=== PATIENT | female | born 1965 | race Hispanic/Latino ===

== ENCOUNTER 2018-04-23 15:25 | Inpatient (IN) | payer SELFPAY ==
[~2018-04-23] VITALS: Ht 165.1 cm; Wt 93.1 kg
[2018-04-23] MEDS ORDERED: IBUPROFEN 600 MG TABLET ONE (16:03)
[2018-04-23 16:10] LABS: BASOPHILS % (AUTO) 0.4 % (0.0-5.0); HEMATOCRIT 37.7 % (36-48); LYMPHOCYTES % (AUTO) 5.6 % (21.0-51.0); MEAN CORPUSCULAR HEMOGLOBIN 27.1 pg (27.0-33.0); MEAN CORPUSCULAR HGB CONC 33.4 g/dL (32.0-36.0); MONOCYTES % (AUTO) 1.5 % (3.0-13.0); NEUTROPHILS % (AUTO) 92.5 % (40.0-77.0); PLATELET COUNT (AUTO) 237 K/uL (130-400); RED BLOOD CELL COUNT(AUTO) 4.65 MIL/uL (4.00-5.50); RED CELL DISTRIBUTION WIDTH 14.5 % (11.0-15.5); WHITE BLOOD COUNT (AUTO) 13.4 K/uL (4.8-10.8)
[2018-04-23 16:14] LABS: CARBON DIOXIDE 26 mmol/L (21-32); CHLORIDE 98 mmol/L (101-111); GLOMERULAR FILTR. RATE CALC 62 mL/min (>60); GLUCOSE,RANDOM 302 mg/dL (70-105); POTASSIUM 3.7 mmol/L (3.5-5.1); SODIUM SERUM 135 mmol/L (136-145); UREA NITROGEN, BLOOD 13 mg/dL (7-18)
[2018-04-23 16:17] LABS: INR 0.93 (0.85-1.15); PROTHROMBIN TIME 9.8 SEC (9.6-11.6)
[2018-04-23] MEDS ORDERED: CEFTRIAXONE SODIUM 1 GM ONE (16:19)
[2018-04-23 16:26] LABS: APPEARANCE,URINE CLOUDY (CLEAR); BILIRUBIN,URINE NEGATIVE (NEGATIVE); COLOR,URINE YELLOW (YELLOW); GLUCOSE, URINE (UA) >=1000 mg/dL (NEGATIVE); KETONES,URINE 5 mg/dL (NEGATIVE); LEUKOCYTE ESTERASE ,URINE TRACE (NEGATIVE); NITRATE,URINE POSITIVE (NEGATIVE); OCCULT BLOOD,URINE SMALL (NEGATIVE); PROTEIN,URINE 30 (NEGATIVE); UROBILINOGEN,URINE 0.2 mg/dL (0.2-1.0)
[2018-04-23 16:34] LABS: ALANINE AMINOTRANSFERASE 28 U/L (12-78); ALBUMIN 3.5 g/dL (3.5-5.0); ASPARTATE AMINOTRANSFERASE 16 U/L (10-37); BILIRUBIN,TOTAL 0.4 mg/dL (0.2-1.0); CREATINE KINASE, TOTAL 57 U/L (21-232); MYOGLOBIN 73 ng/mL (10-92); TOTAL PROTEIN, SERUM 7.5 g/dL (6.0-8.3); TROPONIN I < 0.04 ng/mL (0.00-0.06)
[2018-04-23 16:38] LABS: B-TYPE NATRIURETIC PEPTIDE 8 pg/mL (0-100)
[2018-04-23 16:58] LABS: RAPID GROUP A STREP NEGATIVE (NEGATIVE)
[2018-04-23 17:15] LABS: BACTERIA,URINE Moderate /HPF (None Seen); WBC,URINE 26-50 /HPF (0-1)
[2018-04-23 17:16] LABS: SQUAMOUS EPITHELIAL CELL,UR Rare /HPF (0-2)
[2018-04-23] MEDS ORDERED: ONDANSETRON HCL 4 MG/2 ML VIAL IV PRN (18:30)
[2018-04-23] MEDS ORDERED: ACETAMINOPHEN 325 MG TAB PO PRN (18:30)
[2018-04-23] MEDS ORDERED: GLUCAGON 1MG KIT 1 MG ML IM PRN (18:30)
[2018-04-23] MEDS ORDERED: DEXTROSE 50%-WATER 50 ML DISP.SYRIN IV PRN (18:30)
[2018-04-23 18:54] LABS: HEMOGLOBIN A1C 11.1 % (4.0-6.0)
[2018-04-23] MEDS ORDERED: MAGNESIUM 2GM PREMIX 50ML 50 ML IV PRN (19:30)
[2018-04-23] MEDS ORDERED: POTASSIUM CHLORIDE 20MEQ/100ML 100 ML IV PRN (19:30)
[2018-04-23] MEDS ORDERED: LIDOCAINE HCL-MPF 1% 2ML VIAL IVP PRN (19:30)
[2018-04-23] MEDS ORDERED: POTASSIUM CHLORIDE 20 MEQ ERTAB PO PRN (19:30)
[2018-04-23] MEDS ORDERED: POTASSIUM CHLORIDE 10% ELIXIR 20 MEQ/15 ML UDCUP PO PRN (19:30)
[2018-04-23] MEDS ORDERED: IOHEXOL-350 75 ML VIAL IV ONE (19:50)
[2018-04-23] MEDS: ZOSYN 3.375GM+NS 50ML 50 ML IV SCH ×2 (20:00→21:00)
[2018-04-23] MEDS ORDERED: ZOSYN 3.375GM+NS 50ML 50 ML IV SCH (21:00)
[2018-04-23] MEDS: FAMOTIDINE 20MG TAB 20 MG TAB PO SCH (21:59)
[2018-04-23] MEDS: SODIUM CHLORIDE 0.9% 1000ML 1,000 ML IV SCH (22:00)
[2018-04-23] MEDS: INSULIN HUMULIN R 100 UNIT/ML 3ML SQ SCH (22:04)
[2018-04-23 22:48] VITALS: BP 129/70
[2018-04-23] MEDS ORDERED: METF-444 PO (23:35)
[2018-04-23] MEDS ORDERED: vitamin b (23:35)
[2018-04-23] MEDS ORDERED: LEVO25TA54 PO (23:35)
[2018-04-24] MEDS: SODIUM CHLORIDE 0.9% 1000ML 1,000 ML IV SCH ×3 (01:49→18:23)
[2018-04-24 03:44] VITALS: BP 118/47
[2018-04-24] MEDS: ZOSYN 3.375GM+NS 50ML 50 ML IV SCH ×3 (04:15→20:18)
[2018-04-24 06:08] LABS: HEMATOCRIT 30.4 % (36-48); MEAN CORPUSCULAR HEMOGLOBIN 27.3 pg (27.0-33.0); MEAN CORPUSCULAR HGB CONC 33.6 g/dL (32.0-36.0); MEAN CORPUSCULAR VOLUME 81.2 fL (79-99); PLATELET COUNT (AUTO) 206 K/uL (130-400); RED BLOOD CELL COUNT(AUTO) 3.75 MIL/uL (4.00-5.50); RED CELL DISTRIBUTION WIDTH 14.2 % (11.0-15.5); WHITE BLOOD COUNT (AUTO) 11.9 K/uL (4.8-10.8)
[2018-04-24 06:34] LABS: ALBUMIN 2.5 g/dL (3.5-5.0); BAND NEUTROPHILS % (MANUAL) 10 % (0-2); BILIRUBIN,TOTAL 0.3 mg/dL (0.2-1.0); CREATININE 0.6 mg/dL (0.5-1.5); LYMPHOCYTES % (MANUAL) 12 % (22-44); MAN.DIFF COMMENT-IMPRESSION MANUAL DIFFERENTIAL; METAMYELOCYTES % 1 % (0-0); MONOCYTES % (MANUAL) 4 % (2-9); PLATELET MORPHOLOGY COMMENT ADEQUATE; POTASSIUM 3.4 mmol/L (3.5-5.1); REACTIVE LYMPHOCYTES 1 % (0-0); SEGMENTED NEUTROPHILS % 72 % (40-70); TOTAL PROTEIN, SERUM 5.8 g/dL (6.0-8.3)
[2018-04-24] MEDS: INSULIN HUMULIN R 100 UNIT/ML 3ML SQ SCH ×4 (06:49→21:40)
[2018-04-24 08:00] VITALS: BP 105/60
[2018-04-24] MEDS: FAMOTIDINE 20MG TAB 20 MG TAB PO SCH ×2 (09:26→20:18)
[2018-04-24] MEDS: ENOXAPARIN SODIUM 40 MG/0.4 ML SYRINGE SQ SCH (09:26)
[2018-04-24 12:00] VITALS: BP 97/54
[2018-04-24 16:00] VITALS: BP 115/68
[2018-04-24] MEDS: ACETAMINOPHEN 325 MG TAB PO PRN (17:46)
[2018-04-24 19:48] VITALS: BP 141/72
--- NOTE | 2018-04-24 21:16 | NUR ---
cm note pt live with family and children, independnet with ambulation and adls . 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 dc plan is back to home. no needs. goes to md at [facility] in [place] for meds and md followup. states no dc needs.
[2018-04-25 00:29] VITALS: BP 113/60
[2018-04-25] MEDS: SODIUM CHLORIDE 0.9% 1000ML 1,000 ML IV SCH ×2 (01:39→10:23)
[2018-04-25] MEDS: ZOSYN 3.375GM+NS 50ML 50 ML IV SCH ×3 (04:18→21:29)
[2018-04-25] MEDS: ACETAMINOPHEN 325 MG TAB PO PRN ×2 (04:18→13:33)
[2018-04-25 04:43] VITALS: BP 142/78
[2018-04-25] MEDS: INSULIN HUMULIN R 100 UNIT/ML 3ML SQ SCH ×4 (06:58→22:57)
[2018-04-25 08:00] VITALS: BP 124/67
[2018-04-25] MEDS: FAMOTIDINE 20MG TAB 20 MG TAB PO SCH ×2 (09:34→21:29)
[2018-04-25] MEDS: ENOXAPARIN SODIUM 40 MG/0.4 ML SYRINGE SQ SCH (09:34)
[2018-04-25 11:00] VITALS: BP 135/77
[2018-04-25] MEDS: LEVOFLOXACIN 500 MG/D5W 100 ML 100 ML IV SCH (14:00)
[2018-04-25 16:00] VITALS: BP 150/82
--- NOTE | 2018-04-25 16:45 | NUR ---
[facility] CM met with pt discussed dc plans. Pt is independent prior to admission, lives at home with children, mother lives close by. Denies any equipments/services. Pt feels safe to go back home, still drives and works, arranges own need. Pt is a self pay, [facility] assisting. Pt states she goes to [facility] for MD vergara/jaylen, pt given community resources. DC plan to home once stable. CM to cont to follow up. Addendum: 04/25/18 at 1647 by AILEEN STEPHENS LVN CM Amended: Links added.
[2018-04-25 21:18] VITALS: BP 143/73
[2018-04-25] MEDS: INSULIN GLARGINE 100 UNITS/ML 10 ML VIAL SQ SCH (22:57)
[2018-04-26 00:11] VITALS: BP 125/75
[2018-04-26 04:15] LABS: HEMATOCRIT 33.2 % (36-48); MEAN CORPUSCULAR HEMOGLOBIN 27.1 pg (27.0-33.0); MEAN CORPUSCULAR HGB CONC 33.6 g/dL (32.0-36.0); MEAN CORPUSCULAR VOLUME 80.6 fL (79-99); PLATELET COUNT (AUTO) 265 K/uL (130-400); RED BLOOD CELL COUNT(AUTO) 4.12 MIL/uL (4.00-5.50); RED CELL DISTRIBUTION WIDTH 14.1 % (11.0-15.5); WHITE BLOOD COUNT (AUTO) 7.4 K/uL (4.8-10.8)
[2018-04-26 04:20] VITALS: BP 124/65
[2018-04-26 04:23] LABS: CREATININE 0.7 mg/dL (0.5-1.5); POTASSIUM 3.6 mmol/L (3.5-5.1)
[2018-04-26] MEDS: ZOSYN 3.375GM+NS 50ML 50 ML IV SCH (05:01)
[2018-04-26] MEDS: INSULIN HUMULIN R 100 UNIT/ML 3ML SQ SCH ×2 (06:12→12:06)
[2018-04-26] MEDS: INSULIN GLARGINE 100 UNITS/ML 10 ML VIAL SQ SCH (06:18)
[2018-04-26] MEDS ORDERED: LEVOTHYROXINE 25 MCG TABLET PO SCH (06:30)
[2018-04-26 08:00] VITALS: BP 136/79
[2018-04-26] MEDS: FAMOTIDINE 20MG TAB 20 MG TAB PO SCH (09:45)
[2018-04-26] MEDS: ENOXAPARIN SODIUM 40 MG/0.4 ML SYRINGE SQ SCH (09:45)
[2018-04-26 11:49] VITALS: BP 125/81
[2018-04-26] MEDS: ACETAMINOPHEN 325 MG TAB PO PRN (12:38)
[2018-04-26] MEDS: LEVOFLOXACIN 500 MG/D5W 100 ML 100 ML IV SCH (13:39)
[2018-04-26] MEDS ORDERED: LEVO500T2 PO (14:42)
--- NOTE | 2018-04-26 17:20 | NUR ---
PATIENT GIVEN DISCHARGES ORDERS AND VERBALIZED UNDERSTANDING , IV REMOVED WITH CATHETER INTACT AND PRESSURE HELD ON SITE THEN SITE DRESSED. MONITOR UNIT NOTIFIED AND TELEMETRY REMOVED , PATIENT TO FOLLOW-UP WITH HER PCP IN 3-5 DAYS, PATIENT INSTRUCTED TO CONTINUE TO TAKE LEVAQUIN FOR DAILY FOR 10 DAYS . NO QUESTIONS OR CONCERNS AT THIS TIME AND PATIENT WAS TAKING VIA WHEELCHAIR TO [facility] AND LEFT FOR HOME WITH FAMILY.
== END 2018-04-26 17:29 | disposition home or self-care (01) | DRG 872 ==
LOC: EDH 15:25 → EDHIP 15:26 → 4CH 21:29
PROVIDERS: ADMIT Hospitalist; ATTEND Hospitalist
DX: A41.9 Sepsis, unspecified organism (principal); N39.0 Urinary tract infection, site not specified; R65.20 Severe sepsis without septic shock; E11.65 Type 2 diabetes mellitus with hyperglycemia; E83.42 Hypomagnesemia; E87.6 Hypokalemia; E03.9 Hypothyroidism, unspecified; B96.20 Unspecified Escherichia coli [E. coli] as the cause of diseases classified elsewhere; E66.9 Obesity, unspecified; Z80.1 Family history of malignant neoplasm of trachea, bronchus and lung; Z80.3 Family history of malignant neoplasm of breast; Z90.721 Acquired absence of ovaries, unilateral; Z82.49 Family history of ischemic heart disease and other diseases of the circulatory system; Z90.49 Acquired absence of other specified parts of digestive tract; Z79.84 Long term (current) use of oral hypoglycemic drugs; Z79.899 Other long term (current) drug therapy; Z68.34 Body mass index [BMI] 34.0-34.9, adult
CPT/HCPCS: 36415; 71045; 74178; 80048; 80053; 80339; 81001; 82550; 82948; 83036; 83605; 83735; 83874; 83880; 84443; 84484; 85025; 85027; 85610; 85651; 85730; 86140; 87040; 87077; 87088; 87186; 87804; 87880; 93005; G0378; J0696; J1650; J1815; J1956; J2543; J3475; J7030; Q9967

== ENCOUNTER 2020-10-12 14:01 | Emergency (ER) | payer BC ==
[~2020-10-12] VITALS: Ht 165.1 cm; Wt 88.0 kg
[~2020-10-12 14:01] MED LIST: LEVO25TA54 PO; LEVO500T2 PO; METF-444 PO; vitamin b
[2020-10-12 14:02] VITALS: BP 132/73
== END 2020-10-12 19:21 | disposition left against medical advice (07) ==
LOC: EDH 14:01
DX: R51.9 Headache, unspecified (principal); Z53.21 Procedure and treatment not carried out due to patient leaving prior to being seen by health care provider